=== PATIENT | male | born 1955 | race Caucasian/White ===

== ENCOUNTER → 2016-05-24 | Outpatient (CLI) | payer SELFPAY ==
--- NOTE | 2016-05-24 16:57 | RAD ---
EXAM DESCRIPTION: Lumbar Spine 3 Views CLINICAL HISTORY: 60 years,Male,LUMBOSACRAL NEURITIS COMPARISON: None FINDINGS: The lumbar spine demonstrates no evidence of fractures or other acute abnormalities. Disc heights appear unremarkable for age. Facets demonstrate some [id number] sclerosis at L5-S1 bilaterally.. Surrounding soft tissues demonstrate some mild to moderate calcified disease of aorta multiple surgical clips in the upper abdomen. A 7 mm sclerotic lesion in the central body of L3 IMPRESSION: Mild age-appropriate disease and mild to moderate facet arthropathy at L5-S1 but no acute findings. Small sclerotic body in the body of L3. Most likely a bone island. But cannot exclude sclerotic other lesions such as metastatic. This was not seen in a CAT scan from September 17, 2006. Differential could include adjacent soft tissue calcification but on the coned-down view its relationship in the vertebral body is stable so favors a intervertebral body density Electronically signed by: Uzair Jansen MD 05/24/2016 4:56 PM CDT
== END | disposition home or self-care (01) ==
LOC: RAD 08:16
DX: M54.17 Radiculopathy, lumbosacral region (principal)

== ENCOUNTER → 2017-03-06 | Outpatient (CLI) | payer OTHER ==
--- NOTE | 2017-03-07 15:14 | US ---
EXAM DESCRIPTION: Abdomen,Complete: Ultrasound CLINICAL HISTORY: 61 years Male, S10.84 COMPARISON: CT abdomen without contrast 09/17/2006. TECHNIQUE: Transabdominal standard technique: Two-dimensional and Doppler modes. FINDINGS: Normal ultrasound of the gallbladder. Wall thickness 1.6 mm. No intraluminal stones or sludge. No fluid. Nontender. Normal caliber of the common bile duct. Increased echogenicity of the liver. Normal intrahepatic ducts. Normal vascularity. Smooth capsule. No ascites. Long axis length 18.3 cm Normal ultrasound of the pancreas and pancreatic duct. Normal caliber of the proximal mid and distal abdominal aorta. Spleen long axis diameter 13.9 cm with normal echogenicity. Right kidney with minimal hydronephrosis. No perinephric fluid. Long axis length 11.4 cm. Normal cortical thickness and echogenicity. Left kidney with no hydronephrosis or perinephric fluid. Long axis length 12.2 cm. Normal cortical thickness and echogenicity. Proximal ureters not seen bilaterally. IMPRESSION: Steatosis of the liver. Minimally enlarged. This can be result of obesity or a variety of toxic and metabolic conditions. No ascites. Normal intrahepatic ducts. Borderline splenomegaly but normal echoes. Normal ultrasound of the pancreas gallbladder. Common bile duct nondilated. Minimal hydronephrosis right kidney, otherwise negative. Electronically signed by: Pedro Gonzalez MD 03/07/2017 3:13 PM [facility]
== END | disposition home or self-care (01) ==
LOC: US 10:36
PROVIDERS: ATTEND Nurse Practitioner Family
DX: R10.84 Generalized abdominal pain (principal)

== ENCOUNTER → 2017-03-06 | Outpatient (CLI) | payer OTHER | END | disposition home or self-care (01) | LOC: LAB.O 10:13 | PROVIDERS: ATTEND Nurse Practitioner Family | DX: R10.84 Generalized abdominal pain (principal) ==

== ENCOUNTER → 2017-04-21 | Outpatient (CLI) | payer OTHER ==
--- NOTE | 2017-04-21 12:38 | US ---
EXAM DESCRIPTION:Carotid Duplex CLINICAL HISTORY:CAROTID ARTERY STENOSIS WITHOUT CEREBRAL INFARCTION COMPARISON: None TECHNIQUE: Grayscale and color Doppler sonographic evaluations of carotid and vertebral arterial segments of the neck. FINDINGS: Carotid and vertebral arteries are patent bilaterally with appropriate directions of flow, and biphasic flow waveforms. Mild calcific atherosclerotic deposition along carotid bulbs and proximal internal carotid arteries. Peak systolic flow velocities (in CM/sec) as follows: Right side, CCA proximal, 133 CCA distal, 106 ICA proximal, 90 ICA mid, 81 ICA distal, 82 ECA proximal, 125 Proximal ICA/distal CCA ratio, 0.9 Left side, CCA proximal, 115 CCA distal, 121 ICA proximal, 91 ICA mid, 65 ICA distal, 62 ECA proximal, 107 Proximal ICA/distal CCA ratio, 0.8 IMPRESSION: Carotid and vertebral arteries are patent bilaterally with appropriate directions of flow No focal flow limiting stenosis identified along carotid vessels based on velocity criteria. Slightly elevated flow velocity in proximal right common carotid artery raises concern of more upstream flow limiting stenosis. Electronically signed by: Ramana Pichardo MD 04/21/2017 12:37 PM [facility]
== END ==
LOC: US 09:51
PROVIDERS: ATTEND Family Medicine
DX: I65.23 Occlusion and stenosis of bilateral carotid arteries (principal)